=== PATIENT | female | born 1970 | race Caucasian/White ===

== ENCOUNTER → 2016-07-19 | Outpatient (CLI) | payer OTHER ==
[~2016-07-19] MED LIST: AMOX875T2 PO; FLUT16SP NS; METH4TAB27 PO
--- NOTE | 2016-07-19 10:11 | Urgent Care T Sheet Gen (E) ---
Intake General Chief Complaint: Ear/Nose/Throat Complaint Description of Symptoms She comes in today for a sinus infection, coughing and sinus pressure, congestion x several days. No chest pain or SOB. Coughing and hacking up phlegm and mucous. Feels miserable. Source: Patient History of Present Illness Onset & Duration: Days Timing: Still present Severity: Moderate Associated Symptoms: Cough, Nasal congestion, Sinus congestion Recent Trauma: No Allergies: Coded Allergies: Sulfa (Sulfonamide Antibiotics) (Verified Allergy, 07/19/16) Tetanus Vaccines And Toxoid (Verified Allergy, 07/19/16) Additional Comment Using Jorge cox- help the cough. Day Quil Respiratory Constitutional Symptoms: Fever (low grade) EENTM: Nose Congestion Throat pain Other (nasal congestion and drainage) Respiratory: CoughNo Short of breath Cardiovascular: No symptoms reported Gastrointestinal/Abdominal: No symptoms reported Genitourinary: No symptoms reported All Other Systems Reviewed Remaining Systems: All other systems reviewed with negative findings Past Wesaxye-Pspuvx-Nuzbnn Hx Patient's Social History Alcohol Use: Denies Use Recreational Drug Use: Denies Use Surgeries/Hospitalizations Hospitalization/Surgery Hx: healthy Physical Exam Physical Exam General Appearance: WD/WN No apparent distress Eyes, Ears, Nose, Throat Ex: PERRL/EOMI TM abnormal (R) (dull with fluid) TM abnormal (L) (dull with fluid) Pharyngeal erythema Other (nares red and swollen with exudate) Neck Exam: Full range of motion Supple Normal inspection Normal thyroidNo Lymphadenopathy Respiratory Exam: Lungs clear Normal breath sounds No respiratory distress No accessory muscles usedNo Accessory muscle use, No Wheezes Cardiovascular Exam: Regular rate, rhythm No murmur Neurologic/Psychiatric Exam: Oriented times 4 CN's II-X nml Departure Urgent Care Impression Chief Complaint: Ear/Nose/Throat Complaint Impression: Primary Impression: Sinusitis Qualified Code: J01.10 - Acute frontal sinusitis, unspecified Departure Disposition: HOME OR SELF-CARE Condition: Stable Referrals: ADELE MCCAULEY MD (PCP) Additional Instructions: Long talk with her rest hydrate Tylenol for pain or fever continue home meds f/u PCP as needed she agrees to plan of care If no improvement may need to change to Augmentin- she is aware of this. Scripts Fluticasone Propionate 16 Gm [place].susp16 Gm NS DAILY #1 BTL 2 sprays each nare daily Prov:DECLAN CANALES APRN () 07/19/16 Amoxicillin 875 Mg [place]611 Mg PO BID #20 TAB Ref 0 Prov:DECLAN CANALES APRN () 07/19/16 End of report . DECLAN CANALES APRN () Jul 19, 2016 10:11
== END ==
LOC: MHUC 10:06
PROVIDERS: ATTEND Nurse Practitioner
DX: J01.10 Acute frontal sinusitis, unspecified (principal)
CPT/HCPCS: 99213

== ENCOUNTER → 2016-08-30 | Outpatient (CLI) | payer OTHER ==
[2016-08-30 10:28] VITALS: BP 122/89
== END ==
LOC: MHUC 10:01
PROVIDERS: ATTEND Physician Assistant
DX: J00 Acute nasopharyngitis [common cold] (principal)
CPT/HCPCS: 99213

== ENCOUNTER 2016-11-30 08:09 | Outpatient (RCR) | payer OTHER ==
--- NOTE | 2016-12-03 16:14 | PT/OT/ST INITIAL EVALUATION ---
Department of Health and Human Services Form Approved [facility] Care Financing Administration OMB No. [id number] PLAN OF CARE/ASSESSMENT FOR OUTPATIENT REHABILITATION (Complete for Initial Claims Only) 1. PATIENT'S NAME Loni Douglas 2. ACC # [id number] [id number] 4. PROVIDER NO. [id number] 5. TYPE: PT 6. PRIOR HOSPITALIZATION 7. PRIMARY DX Left knee pain 8. SECONDARY DX Left knee arthritic changes 9. ONSET DATE fall 10. REFERRAL DATE 11/04/2016 11. SOC. DATE 11/30/2016 12. TIME OF EVAL 07:30 a.m. 12. REFERRING PHYSICIAN Cruz Lama MD 13. CHARGES/UNITS Evaluation 14. G CODES 15. PRIOR LEVEL OF FUNCTION; PERTINENT HISTORY (Prior therapy results, reason for referral.) S: Reason for referral: The patient was referred to physical therapy by Dr. Lama for prehab prior to her left knee surgery on 12/15/2016. The patient has an extensive past medical history at her left knee which includes 4 previous surgeries, an ACL in 2013, 2 meniscus surgeries, and 1 arthroscopic debridement. The patient reports that last summer due to her limited extension at her left knee she had increased pain at her left foot and plantar fascitis. Patient's Goal: The patient's goal for therapy is to regain full motion and strength at her left knee after surgery. 16. INITIAL ASSESSMENT/SAFETY PRECAUTIONS/MEDICAL COMPLICATIONS (Level of function at start of care. Be specific, use objective measures, list problems.) O: APPEARANCE, OBSERVATION AND GAIT: This is a healthy looking 46-year-old female. She ambulates with her left knee slightly flexed, limited terminal knee extension with gait. PALPATION: The patient has limited patellar mobility both superiorly and inferiorly as well as medially and laterally. RANGE OF MOTION/FLEXIBILITY: Right knee 7 degrees hyperextension to 150 degrees flexion. Left knee -6 degrees from terminal knee extension to 105 degrees flexion. Left terminal knee extension is limited. The patient does demonstrate a fair quad firing at her left knee. STRENGTH: The patient demonstrates full strength at her right hip and knee. TODAY'S TREATMENT: Treatment included initial evaluation followed by instruction on home exercise program to be performed daily prior to surgery. 17. INITIAL POC: (Specify procedures, modalities, short and long term care social worker goals) A: The patient is to undergo left knee scope and debridement on 12/15/2016. P: Plan on discharging patient to independent home exercise program at this time. 18. FREQUENCY 19. DURATION 20. FUNCTIONAL LEVEL (End of claim period) 21. PHYSICIAN SIGNATURE ? ON FILE OR ENTER HERE: 22. DATE: I certify the need for these services furnished under this plan of care and if for partial hospitalization. 23. CERTIFICATION FROM THROUGH FORM [id number]
== END 2016-12-06 13:08 | disposition home or self-care (01) ==
LOC: PT 08:09
PROVIDERS: ATTEND Orthopaedic Surgery
DX: M25.562 Pain in left knee (principal)